=== PATIENT | female | born 1965 | race Caucasian/White ===

== ENCOUNTER 2017-05-04 17:29 | Emergency (ER) | payer MEDICAID, OTHER ==
[~2017-05-04] VITALS: Ht 152.4 cm; Wt 122.0 kg
[2017-05-04 17:45] VITALS: Ht 152.4 cm; Wt 122.0 kg
[2017-05-04] MEDS ORDERED: KETOROLAC 30 MG INJ IV STA (20:40)
[2017-05-04 21:28] LABS: BASOPHILS % 0.6 % (0.0-2.0); EOSINOPHILS # 0.2 10^3/ul (0.0-0.5); EOSINOPHILS % 2.5 % (0.0-7.0); HEMATOCRIT 41.1 % (37.0-47.0); HEMOGLOBIN 13.2 g/dl (12.0-16.0); LYMPHOCYTES % 47.1 % (15.0-51.0); MEAN CORPUSCULAR HEMOGLOBIN 28.3 pg (29.0-33.0); MEAN CORPUSCULAR HGB CONC 32.1 g/dl (32.0-37.0); MEAN PLATELET VOLUME 11.3 fl (7.4-10.4); MONOCYTE # 0.6 10^3/ul (0.3-0.9); MONOCYTES % 10.2 % (0.0-11.0); NEUTROPHIL # 2.5 10^3/ul (1.6-7.5); NEUTROPHILS % 39.4 % (39.0-77.0); PLATELET COUNT 281 10^3/UL (140-415); RED BLOOD COUNT 4.67 10^6/ul (4.20-5.40); RED CELL DISTRIBUTION WIDTH 14.4 % (11.5-14.5); WHITE BLOOD COUNT 6.3 10^3/ul (4.8-10.8)
--- NOTE | 2017-05-04 21:28 | RADRPT ---
PROCEDURE: XR Chest. CLINICAL INDICATION: Chest pain. TECHNIQUE: Single frontal chest x-ray. COMPARISON: None available. FINDINGS: The cardiomediastinal silhouette is unremarkable. Mild left basilar atelectasis is noted. No pneumothorax, pleural effusion or consolidation is seen. There are multilevel degenerative changes of thoracic spine with decreased disk spaces and osteophyt osis. IMPRESSION: 1. Mild left basilar atelectasis. Otherwise no acute cardiopulmonary abnormality. RPTAT: HFN .Mayo Covington MD, MD Date Time Electronically viewed and signed by .Mayo Covington MD, MD on 05/04/2017 21:28 .N/
[2017-05-04 22:03] LABS: ALANINE AMINOTRANSFERASE 28 IU/L (13-69); ALBUMIN 4.6 g/dl (3.3-4.9); ALBUMIN/GLOBULIN RATIO 1.17; ALKALINE PHOSPHATASE 140 IU/L (42-121); ANION GAP 16 (8-16); ASPARTATE AMINO TRANSFERASE 28 IU/L (15-46); BILIRUBIN,INDIRECT 0.1 mg/dl (0-1.1); BILIRUBIN,TOTAL 0.1 mg/dl (0.2-1.3); BLOOD UREA NITROGEN 17 mg/dl (7-20); CALCIUM 9.9 mg/dl (8.4-10.2); CARBON DIOXIDE 29 mmol/L (21-31); CHLORIDE 106 mmol/L (97-110); CREATININE 0.94 mg/dl (0.44-1.00); GLUCOSE 98 mg/dl (70-220); POTASSIUM 4.6 mmol/L (3.5-5.1); SODIUM 146 mmol/L (135-144); TOTAL PROTEIN 8.5 g/dl (6.1-8.1)
[2017-05-04 22:19] LABS: TROPONIN-I < 0.012 ng/ml (0.00-0.12)
[2017-05-04 22:29] VITALS: TEMP 98.7
[2017-05-04] MEDS ORDERED: IBUP-1542 PO (22:33)
--- NOTE | 2017-05-04 22:45 | ERD ---
ER Documentation Chief Complaint Chief Complaint RT UPPER CHEST PAIN WITH RADIATING PAIN TO THE BACK X 3 DAYS, "CONSTANT" HPI 52-year-old female with a history of hypertension presenting with right-sided upper chest pain for the past 3-4 days. She states the pain is constant, aching , worse with movement, better with not moving. No associated diaphoresis, shortness of breath, radiation, cough, fever, chills, nausea, or vomiting. She tried Tylenol for the pain without any significant improvement. No recent travel or surgeries. No history of blood clots. ROS All systems reviewed and are negative except as per history of present illness. Medications Home Meds Active Scripts Ibuprofen* (Motrin*) 600 Mg Tab, 600 MG PO Q6H Y for PAIN AND OR ELEVATED TEMP, #30 TAB Prov:KARINA COLES MD 05/04/17 Allergies Allergies: Coded Allergies: Penicillins (Unverified Allergy, Unknown, 05/04/17) PMhx/Soc History of Surgery: Yes (C SECTION X'S 3) Anesthesia Reaction: No Hx Neurological Disorder: No Hx Respiratory Disorders: No Hx Cardiac Disorders: Yes (HTN) Hx Psychiatric Problems: No Hx Miscellaneous Medical Probl: Yes (ARTHRITIS) Hx Alcohol Use: No Hx Substance Use: No Hx Tobacco Use: No Smoking Status: Never smoker FmHx Family History: No coronary disease Physical Exam Vitals Vital Signs Date Time Temp Pulse Resp B/P Pulse Ox O2 Delivery O2 Flow Rate FiO2 05/04/17 22:29 98.7 84 20 127/86 98 Room Air 05/04/17 20:44 98.7 82 20 147/90 100 Room Air 05/04/17 17:45 98.7 95 20 160/100 100 Physical Exam Const: Well-appearing, no apparent distress Head: Atraumatic Eyes: Normal Conjunctiva ENT: Normal External Ears, Nose and Mouth. Neck: Full range of motion..~ No meningismus. Resp: Clear to auscultation bilaterally Cardio: Regular rate and rhythm, no murmurs Abd: Soft, non tender, non distended. Normal bowel sounds Skin: No petechiae or rashes Back: No midline or flank tenderness Ext: No cyanosis, or edema Neur: Awake and alert Psych: Normal Mood and Affect Result Diagram: 05/04/17203905/04/172039 Results 24 hrs Laboratory Tests Test 05/04/17 20:40 White Blood Count 6.310^3/ul Red Blood Count 4.6710^6/ul Hemoglobin 13.2g/dl Hematocrit 41.1% Mean Corpuscular Volume 88.0fl Mean Corpuscular Hemoglobin 28.3pg Mean Corpuscular Hemoglobin Concent 32.1g/dl Red Cell Distribution Width 14.4% Platelet Count 17837^3/UL Mean Platelet Volume 11.3fl Neutrophils % 39.4% Lymphocytes % 47.1% Monocytes % 10.2% Eosinophils % 2.5% Basophils % 0.6% Nucleated Red Blood Cells % 0.0/100WBC Neutrophils # 2.510^3/ul Lymphocytes # 3.010^3/ul Monocytes # 0.610^3/ul Eosinophils # 0.210^3/ul Basophils # 0.010^3/ul Nucleated Red Blood Cells # 0.010^3/ul Sodium Level 146mmol/L Potassium Level 4.6mmol/L Chloride Level 106mmol/L Carbon Dioxide Level 29mmol/L Anion Gap 16 Blood Urea Nitrogen 17mg/dl Creatinine 0.94mg/dl Glucose Level 98mg/dl Calcium Level 9.9mg/dl Total Bilirubin 0.1mg/dl Direct Bilirubin 0.00mg/dl Indirect Bilirubin 0.1mg/dl Aspartate Amino Transf (AST/SGOT) 28IU/L Alanine Aminotransferase (ALT/SGPT) 28IU/L Alkaline Phosphatase 140IU/L Troponin I < 0.012ng/ml Total Protein 8.5g/dl Albumin 4.6g/dl Globulin 3.90g/dl Albumin/Globulin Ratio 1.17 Current Medications Medications (Trade) Dose Ordered Sig/Marisa Route PRN Reason Start Time Stop Time Status Last Admin Dose Admin Ketorolac Tromethamine (Toradol) 30 mg ONCE STAT IV 05/04/17 20:40 05/04/17 20:42 DC 05/04/17 21:03 Procedures/MDM CBC: no anemia or evidence of infection BMP: No evidence of electrolyte abnormality, renal failure, hypoglycemia Troponin within normal limits Chest x-ray shows no acute abnormalities MDM Patient is presenting with right sided anterior chest wall pain, concerning for chest wall strain. Vitals are stable. There is no evidence of hypertensive emergency or aortic dissection. I have a low suspicion for pulmonary embolism, acute coronary syndrome, pneumonia, or pneumothorax. Patient was given Toradol with resolution of her pain. I believe she is stable for discharge at this time with continued outpatient follow-up. Return precautions were discussed. Patient discharged in stable condition. Departure Diagnosis: Primary Impression: Right-sided chest wall pain Condition: Stable Patient Instructions: Chest Wall Strain KARINA COLES MD May 04, 2017 22:45
[2017-05-04 22:51] VITALS: BP 135/99; PULSE 83; RESP 20
== END 2017-05-04 22:55 | disposition home or self-care (01) ==
LOC: E/R 17:29
DX: R07.89 Other chest pain (principal); I10 Essential (primary) hypertension
CPT/HCPCS: 36415; 71010; 80053; 84484; 85025; 93005; 96374; J1885; Z7502